=== PATIENT | male | born 1940 | race Caucasian/White ===

== ENCOUNTER 2016-06-02 08:41 | Outpatient (CLI) | payer MEDICARE, BC | END 2016-06-02 08:42 | disposition home or self-care (01) | DX: I48.2 Chronic atrial fibrillation (principal) ==

== ENCOUNTER 2016-08-11 11:19 | Outpatient (CLI) | payer MEDICARE, BC | END 2016-08-11 23:59 | disposition home or self-care (01) | DX: I48.2 Chronic atrial fibrillation (principal) ==

== ENCOUNTER 2016-08-14 10:03 | Outpatient (CLI) | payer MEDICARE, BC | END 2016-08-14 10:04 | disposition home or self-care (01) | DX: I48.91 Unspecified atrial fibrillation (principal) ==

== ENCOUNTER 2016-08-18 09:53 | Outpatient (CLI) | payer MEDICARE, BC | END 2016-08-18 09:54 | disposition home or self-care (01) | DX: M50.30 Other cervical disc degeneration, unspecified cervical region (principal); M47.892 Other spondylosis, cervical region ==

== ENCOUNTER 2016-10-12 09:23 | Outpatient (CLI) | payer MEDICARE, OTHER | END 2016-10-12 09:24 | disposition home or self-care (01) | LOC: LAB.F 09:23 | PROVIDERS: ATTEND Nurse Practitioner Family | DX: I48.91 Unspecified atrial fibrillation (principal) | CPT/HCPCS: 85610 ==

== ENCOUNTER 2016-11-16 08:36 | Outpatient (CLI) | payer MEDICARE, OTHER | END 2016-11-16 08:37 | LOC: LAB.F 08:36 | PROVIDERS: ATTEND Internal Medicine | DX: I48.2 Chronic atrial fibrillation (principal) | CPT/HCPCS: 85610 ==

== ENCOUNTER 2016-11-24 09:35 | Outpatient (CLI) | payer MEDICARE, OTHER | END 2016-11-24 09:36 | disposition home or self-care (01) | LOC: LAB.F 09:35 | PROVIDERS: ATTEND Internal Medicine | DX: I48.2 Chronic atrial fibrillation (principal) | CPT/HCPCS: 85610 ==

== ENCOUNTER 2017-03-04 07:56 | Outpatient (CLI) | payer MEDICARE, OTHER | END 2017-03-04 07:57 | disposition home or self-care (01) | LOC: LAB.F 07:56 | PROVIDERS: ATTEND Internal Medicine | DX: I48.2 Chronic atrial fibrillation (principal) | CPT/HCPCS: 85610 ==

== ENCOUNTER 2017-05-07 07:47 | Outpatient (CLI) | payer MEDICARE, OTHER ==
[2017-05-07 11:58] LABS: BASOPHILS # (AUTO) 0.1 10^3/uL (0.0-0.1); BASOPHILS % (AUTO) 1.2 %; EOSINOPHILS # (AUTO) 0.1 10^3/uL (0.0-0.7); EOSINOPHILS % (AUTO) 1.9 %; HGB - HEMOGLOBIN 13.6 g/dL (14.0-18.0); LYMPHOCYTES # (AUTO) 1.6 10^3/uL (1.5-3.5); LYMPHOCYTES % (AUTO) 21.8 %; MEAN CORPUSCULAR HEMOGLOBIN 33.6 pg (27.0-31.0); MEAN CORPUSCULAR VOLUME 101.8 fL (80.0-94.0); MEAN PLATELET VOLUME 10.4 fL (7.4-11.4); MONOCYTES # (AUTO) 0.6 10^3/uL (0.0-1.0); MONOCYTES % (AUTO) 8.5 %; NEUTROPHILS # (AUTO) 4.8 10^3/uL (1.5-6.6); NEUTROPHILS % (AUTO) 66.6 %; PLT - PLATELET COUNT 161 10^3/uL (130-450); RED BLOOD COUNT 4.06 10^6/uL (4.70-6.10); RED CELL DISTRIBUTION WIDTH 15.3 % (12.0-15.0); WHITE BLOOD COUNT 7.3 x10^3/uL (4.8-10.8)
[2017-05-07 12:13] LABS: ALBUMIN 3.9 g/dL (3.2-5.5); ALBUMIN/GLOBULIN RATIO 1.4 (1.0-2.2); BILIRUBIN,TOTAL 0.7 mg/dL (0.2-1.0); CALCIUM 8.4 mg/dL (8.5-10.3); CREATININE 0.9 mg/dL (0.6-1.2); TOTAL PROTEIN 6.6 g/dL (6.7-8.2)
== END 2017-05-07 07:48 | disposition home or self-care (01) ==
LOC: LAB.F 07:47
PROVIDERS: ATTEND Urology
DX: I48.2 Chronic atrial fibrillation (principal); Z12.5 Encounter for screening for malignant neoplasm of prostate; R85.89 Other abnormal findings in specimens from digestive organs and abdominal cavity
CPT/HCPCS: 36415; 80053; 85025; 85610; G0103; 84153

== ENCOUNTER 2017-06-11 07:43 | Outpatient (CLI) | payer MEDICARE, OTHER | END 2017-06-11 07:44 | disposition home or self-care (01) | LOC: LAB.F 07:43 | PROVIDERS: ATTEND Internal Medicine | DX: I48.2 Chronic atrial fibrillation (principal) | CPT/HCPCS: 85610 ==

== ENCOUNTER 2017-07-05 08:00 | Outpatient (CLI) | payer MEDICARE, OTHER | END 2017-07-05 08:01 | disposition home or self-care (01) | LOC: LAB.F 08:00 | PROVIDERS: ATTEND Internal Medicine | DX: I48.2 Chronic atrial fibrillation (principal) | CPT/HCPCS: 85610 ==

== ENCOUNTER 2017-07-16 08:27 | Outpatient (CLI) | payer MEDICARE, OTHER | END 2017-07-16 08:28 | disposition home or self-care (01) | LOC: LAB.F 08:27 | PROVIDERS: ATTEND Internal Medicine | DX: I48.2 Chronic atrial fibrillation (principal) | CPT/HCPCS: 85610 ==

== ENCOUNTER 2017-07-19 11:17 | Day surgery (SDC) | payer MEDICARE, OTHER ==
[2017-07-19] MEDS ORDERED: LACTATED RINGERS 1,000 ML IV ONE (12:22)
[2017-07-19 13:04] LABS: INR 1.2 (0.8-1.2); PT - PROTHROMBIN TIME 13.6 secs (9.9-12.6)
[2017-07-19] MEDS ORDERED: fentaNYL 250 MCG/5 ML VIAL IVP ONE (13:37)
[2017-07-19] MEDS ORDERED: MIDAZOLAM 2 MG/2 ML VIAL IVP ONE (13:37)
--- NOTE | 2017-07-19 13:40 | SURGERY HX AND PHYSICAL(T) ---
Surgical History & Physical - PMH/PSH/Social Hx Does the pt have a hx of MRSA?: No Eyes, Ears, Nose, Throat: None Cardiovascular: Hypertension, Atrial fibrillation Respiratory: Sleep apnea Skin: None Endocrine/Autoimmune: None Gastrointestinal: None Urinary: Other Musculoskeletal: None Psychiatric: None General: Cholecystectomy Orthopedic: Other - Home Meds and Allergies Home Medications: Metoprolol Succinate 25 mg PO DAILY 07/19/17 Warfarin [Coumadin] 5 mg PO DAILY 07/19/17 amLODIPine [Norvasc] 2.5 mg PO DAILY 07/19/17 Allergies/Adverse Reactions: Allergies Allergy/AdvReac Type Severity Reaction Status Date / Time No Known Drug Allergies Allergy Verified 07/19/17 12:28 - Vital Signs Temperature: 36.6 C Respiratory Rate: 16 O2 Saturation: 96 Weight (kg): 74.2 kg Height: 1.73 m - Patient Review Patient Review: Problems were reviewed with the patient during this visit. Medications were reviewed with the patient during this visit. Allergies were reviewed this patient during this visit. Pertinent Tests Reviewed: All pertitent test for this patient were reviewed. - Assessment & Plan Assessment and Plan: This very pleasant 76-year-old male who initially came to my office the end of May for the very same reason. For reasons that are unclear to me today his procedure was scheduled more than 30 days from the time of the summer in the office hence this update history and physical was mandated. In my discussions with the patient there have been no changes in his history and physical. Specifically he has started a new blood pressure medication with good results. He has not stopped any other medications. There are no new allergies. He has not been hospitalized. There are no new diagnoses. Teri Dawkins PA-C initially sent this very pleasant 76 year-old male to my office in consultation for the aforementioned reasons. He describes his bowel movements as regular and normal. He denies nausea, vomiting, constipation , diarrhea, melena, hematochezia, hematemesis, abdominal pain, unexplained weight loss, or change in the color, character or caliber of his stool. The patient had a Cologuard study hoping to avoid a colonoscopy and unfortunately this came back positive. Current Allergies: None. Current Medications: SUPREP BOWEL PREP KIT 17.5-3.13-1.6 GM/180ML ORAL SOLUTION (NA SULFATE-K SULFATE-MG SULF) Take one (6oz) bottle by mouth the PM before colonoscopy & one (6oz) bottle by mouth the AM of colonoscopy as directed by surgical clinic METOPROLOL SUCCINATE ER 25 MG ORAL TABLET EXTENDED RELEASE 24 HOUR (METOPROLOL SUCCINATE) Take one tablet by mouth daily * COUMADIN 5 MG ORAL TABLET (WARFARIN SODIUM) Take 5 mg for 5 days and 2.5mg for 2 days by moutrh or as otherwise directed by provider (instructed to and stopped) See nursing list for new antihypertensive medication Past Medical History: urinary retention - self cath's chronic anticoagulation atrial fibrillation Acid Reflux Hiatal Hernia Past Surgical History: knee surgery three hernia surgeries lap cris appendectomy Family History Summary: Father (ernestina.) - Has a Hx of Other Cancer - Bladder cancer - Entered On: 2014 Father (ernestina.) - Has a father - Bladder cancer - Entered On: 09/13/2014 Mother (ernestina.) - Has a mother - Entered On: 09/13/2014 Risk Factors: Smoked Tobacco Use: Former smoker Cigarettes: Yes Drug use: no Alcohol use: yes Type: Wine Drinks per day: 1 Exercise: yes Times per week: 3 Review of Systems CONSTITUTIONAL: No weight loss, fever, chills, weakness or fatigue. HEENT: Eyes: No visual loss, blurred vision, double vision or yellow sclerae. Ears, Nose, Throat: No hearing loss, sneezing, congestion, runny nose or sore throat. SKIN: No rash or itching. CARDIOVASCULAR: No chest pain, chest pressure or chest discomfort. No palpitations or edema. RESPIRATORY: No shortness of breath, cough or sputum. GASTROINTESTINAL: No anorexia, nausea, vomiting or diarrhea. No abdominal pain or blood. GENITOURINARY: No dysuria. No impotence. NEUROLOGICAL: No headache, dizziness, syncope, paralysis, ataxia, numbness or tingling in the extremities. No change in bowel or bladder control. MUSCULOSKELETAL: No muscle, back pain, joint pain or stiffness. HEMATOLOGIC: No anemia, bleeding or bruising. LYMPHATICS: No enlarged nodes. No history of splenectomy. PSYCHIATRIC: No history of depression or anxiety. ENDOCRINOLOGIC: No reports of sweating, cold or heat intolerance. No polyuria or polydipsia. ALLERGIES: No history of asthma, hives, eczema or rhinitis. Physical Exam General: 76-year old male, appears stated age, well developed, well nourished, evaluated in Bed 4, [facility] [employer]. HEENT: Normocephalic, atraumatic, extraocular movement intact, mucous membranes pink and moist, sclera anicteric and not injected, valentine hair Neck: Supple without pain on palpation, mass or bruit Cardiac: Regular rate and rhythm without rub, gallop, or murmur Chest: Clear to auscultation bilaterally Abdomen: Soft, nontender, normoactive bowel sounds, no hepatomegaly, no splenomegaly Genitourinary: Deferred Rectal: Deferred until colonoscopy Extremities: No gross neurovascular problem, no clubbing, cyanosis or edema Gait: No gross motor deficit Psychiatric: Alert and oriented to person place and time, asks and answers questions appropriately, mood and affect appropriate Impression & Recommendations: Colonoscopy with possible biopsies and/or polypectomies. Indications, procedure , alternatives (such as barium enema, Cologuard and even no procedure at all) and risks including but not limited to perforation requiring operative repair, bleeding with its risks, and were fully explained to him. I darshana diagrams explaining the colonic anatomy and the proposed procedure and handed it to him. Conscious sedation was discussed at length with him as were its risks including but not limited to loss of airway, aspiration, respiratory depression, and not enough relief of pain and anxiety and he indicated that he wished to have conscious sedation for his procedure. I explained that MAC anesthesia is associated with a higher incidence of colon perforation. Review of his history does not reveal any significant systemic disease that would contraindicate use of conscious sedation or MAC anesthesia. All questions were fully answered. Verbal and written consent was obtained. The patient in preparation for his colonoscopy will be n.p.o. and his colon will be mechanically prepped. Additionally, we should get in contact with his campus safety officer to determine what they would like us to do with his Coumadin. In short, does he need to be bridged or can the Coumadin be stopped for 5 days prior to the procedure than restarted the day of the procedure. 20 minutes of [id number] time spent with the patient the majority of which was spent in discussion
[2017-07-19 14:27] VITALS: BP 115/79
== END 2017-07-19 11:18 | disposition home or self-care (01) ==
LOC: SDS 11:17
PROVIDERS: ATTEND Surgery
PROC: 0DBM8ZX Excision of Descending Colon, Via Natural or Artificial Opening Endoscopic, Diagnostic (ICD-10-PCS; principal; 2017-07-19 12:30)
DX: R19.5 Other fecal abnormalities (principal); K57.30 Diverticulosis of large intestine without perforation or abscess without bleeding; K64.8 Other hemorrhoids; K51.40 Inflammatory polyps of colon without complications; I10 Essential (primary) hypertension; I48.91 Unspecified atrial fibrillation; Z79.01 Long term (current) use of anticoagulants
CPT/HCPCS: 36415; 45385; 85610; J3010; J7120

== ENCOUNTER 2017-09-07 08:53 | Outpatient (CLI) | payer MEDICARE, OTHER | END 2017-09-07 08:54 | disposition home or self-care (01) | LOC: LAB.F 08:53 | PROVIDERS: ATTEND Internal Medicine | DX: I48.2 Chronic atrial fibrillation (principal) | CPT/HCPCS: 85610 ==

== ENCOUNTER 2017-09-24 08:20 | Outpatient (CLI) | payer MEDICARE, OTHER ==
[2017-09-24] MEDS ORDERED: IOPAMIDOL-300 50 ML VIAL PO ONE (08:34)
[2017-09-24] MEDS ORDERED: IOPAMIDOL-300 50 ML VIAL ONE (08:35)
--- NOTE | 2017-09-25 08:49 | CT Report ---
EXAM: CT BONY PELVIS WITHOUT CONTRAST EXAM DATE: 09/24/2017 09:32 AM. CLINICAL HISTORY: RECURRENT HERNIA. COMPARISON: None. TECHNIQUE: Thin-section axial images were acquired of the pelvis without IV contrast. Oral Contrast g iven. Post-processing: Coronal and sagittal reformats. Other: None. In accordance with CT protocol optimization, one or more of the following dose reduction techniques w ere utilized for this exam: automated exposure control, adjustment of mA and/or KV based on patient s ize, or use of iterative reconstructive technique. FINDINGS: Bones: Lower lumbar degenerative disk disease. No significant pelvic ring lesion. Mild degenerative a rthritis of the left hip. Mild SI joint degenerative arthritis. Minimal osteoarthritis of the left hip. Musculature: No significant abnormality. Pelvic Cavity: No abnormal bowel dilatation. 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 This does not contain air. No j carlos rounding fatty infiltration noted. Other: There is a moderate size left inguinal hernia which has a lateral fatty component and medially contai ns a small portion of the urinary bladder. The appearance is somewhat complex and there may be an ind irect fatty component and direct component containing the portion of the urinary bladder. No other hernia identified. IMPRESSION: Positive for moderate sized complex-appearing left inguinal hernia. See above description. Left hemipelvis large but simple appearing fluid collection is noted. 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 Mild chronic bony changes. [facility] Referring Provider Line: [phone] SITE ID: [id number]
== END 2017-09-24 08:21 | disposition home or self-care (01) ==
LOC: DI 08:20
PROVIDERS: ATTEND Surgery
DX: K40.91 Unilateral inguinal hernia, without obstruction or gangrene, recurrent (principal); M51.36 Other intervertebral disc degeneration, lumbar region; M16.12 Unilateral primary osteoarthritis, left hip; M47.898 Other spondylosis, sacral and sacrococcygeal region
CPT/HCPCS: 72192; Q9967

== ENCOUNTER 2017-11-18 09:00 | Outpatient (CLI) | payer MEDICARE, OTHER | END 2017-11-18 09:01 | disposition home or self-care (01) | LOC: LAB.F 09:00 | PROVIDERS: ATTEND Internal Medicine | DX: I48.2 Chronic atrial fibrillation (principal) | CPT/HCPCS: 85610 ==

== ENCOUNTER 2017-12-24 10:44 | Outpatient (CLI) | payer MEDICARE, OTHER | END 2017-12-24 10:45 | disposition home or self-care (01) | LOC: LAB.F 10:44 | PROVIDERS: ATTEND Internal Medicine | DX: I48.2 Chronic atrial fibrillation (principal) | CPT/HCPCS: 85610 ==

== ENCOUNTER 2018-01-28 10:03 | Outpatient (CLI) | payer MEDICARE, OTHER | END 2018-01-28 10:04 | disposition home or self-care (01) | LOC: LAB.F 10:03 | PROVIDERS: ATTEND Internal Medicine | DX: I48.2 Chronic atrial fibrillation (principal) | CPT/HCPCS: 85610 ==

== ENCOUNTER 2018-02-04 07:49 | Outpatient (CLI) | payer MEDICARE, OTHER ==
[2018-02-04 10:41] LABS: PT - PROTHROMBIN TIME 50.6 secs (9.9-12.6)
[2018-02-04 10:51] LABS: INR 4.6 (0.8-1.2)
== END 2018-02-04 07:50 | disposition home or self-care (01) ==
LOC: LAB.F 07:49
PROVIDERS: ATTEND Internal Medicine
DX: I48.2 Chronic atrial fibrillation (principal)
CPT/HCPCS: 36415; 85610

== ENCOUNTER 2018-02-11 07:26 | Outpatient (CLI) | payer MEDICARE, OTHER | END 2018-02-11 07:27 | disposition home or self-care (01) | LOC: LAB.F 07:26 | PROVIDERS: ATTEND Internal Medicine | DX: I48.2 Chronic atrial fibrillation (principal) | CPT/HCPCS: 85610 ==

== ENCOUNTER 2018-02-18 07:27 | Outpatient (CLI) | payer MEDICARE, OTHER | END 2018-02-18 07:28 | disposition home or self-care (01) | LOC: LAB.F 07:27 | PROVIDERS: ATTEND Internal Medicine | DX: I48.2 Chronic atrial fibrillation (principal) | CPT/HCPCS: 85610 ==

== ENCOUNTER 2018-04-07 07:35 | Outpatient (CLI) | payer MEDICARE, OTHER | END 2018-04-07 07:36 | disposition home or self-care (01) | LOC: LAB.F 07:35 | PROVIDERS: ATTEND Internal Medicine | DX: I48.2 Chronic atrial fibrillation (principal) | CPT/HCPCS: 85610 ==

== ENCOUNTER 2018-05-04 07:37 | Outpatient (CLI) | payer MEDICARE, OTHER | END 2018-05-04 07:38 | disposition home or self-care (01) | LOC: LAB.F 07:37 | PROVIDERS: ATTEND Internal Medicine | DX: I48.2 Chronic atrial fibrillation (principal) | CPT/HCPCS: 85610 ==

== ENCOUNTER 2018-06-17 07:37 | Outpatient (CLI) | payer MEDICARE, OTHER | END 2018-06-17 07:38 | disposition home or self-care (01) | LOC: LAB.F 07:37 | PROVIDERS: ATTEND Internal Medicine | DX: I48.2 Chronic atrial fibrillation (principal) | CPT/HCPCS: 85610 ==

== ENCOUNTER 2018-07-29 07:15 | Outpatient (CLI) | payer MEDICARE, OTHER | END 2018-07-29 07:16 | disposition home or self-care (01) | LOC: LAB.F 07:15 | PROVIDERS: ATTEND Internal Medicine | DX: I48.2 Chronic atrial fibrillation (principal) | CPT/HCPCS: 85610 ==

== ENCOUNTER 2018-09-07 07:36 | Outpatient (CLI) | payer MEDICARE, OTHER | END 2018-09-07 07:37 | disposition home or self-care (01) | LOC: LAB.F 07:36 | PROVIDERS: ATTEND Internal Medicine | DX: I48.2 Chronic atrial fibrillation (principal) | CPT/HCPCS: 85610 ==

== ENCOUNTER 2018-09-23 08:59 | Outpatient (CLI) | payer MEDICARE, OTHER | END 2018-09-23 09:00 | disposition home or self-care (01) | LOC: LAB.F 08:59 | PROVIDERS: ATTEND Internal Medicine | DX: I48.2 Chronic atrial fibrillation (principal) | CPT/HCPCS: 85610 ==

== ENCOUNTER 2018-10-27 07:54 | Outpatient (CLI) | payer MEDICARE, OTHER | END 2018-10-27 07:55 | disposition home or self-care (01) | LOC: LAB.S 07:54 | PROVIDERS: ATTEND Internal Medicine | DX: I48.2 Chronic atrial fibrillation (principal) | CPT/HCPCS: 85610 ==

== ENCOUNTER 2018-12-08 07:29 | Outpatient (CLI) | payer MEDICARE, OTHER | END 2018-12-08 07:30 | disposition home or self-care (01) | LOC: LAB.S 07:29 | PROVIDERS: ATTEND Family Medicine | DX: I48.2 Chronic atrial fibrillation (principal) | CPT/HCPCS: 85610 ==

== ENCOUNTER 2019-01-16 07:08 | Outpatient (CLI) | payer MEDICARE, OTHER | END 2019-01-16 07:09 | disposition home or self-care (01) | LOC: LAB.S 07:08 | PROVIDERS: ATTEND Family Medicine | DX: I48.2 Chronic atrial fibrillation (principal) | CPT/HCPCS: 85610 ==

== ENCOUNTER 2019-02-21 07:43 | Outpatient (CLI) | payer MEDICARE, OTHER | END 2019-02-21 07:44 | disposition home or self-care (01) | LOC: LAB.S 07:43 | PROVIDERS: ATTEND Family Medicine | DX: I48.20 Chronic atrial fibrillation, unspecified (principal) | CPT/HCPCS: 85610 ==

== ENCOUNTER 2019-05-22 07:04 | Outpatient (CLI) | payer MEDICARE, OTHER | END 2019-05-22 07:05 | disposition home or self-care (01) | LOC: LAB.S 07:04 | PROVIDERS: ATTEND Family Medicine | DX: I48.20 Chronic atrial fibrillation, unspecified (principal) | CPT/HCPCS: 85610 ==

== ENCOUNTER 2020-01-30 07:09 | Outpatient (CLI) | payer MEDICARE, OTHER | END 2020-01-30 07:10 | disposition home or self-care (01) | LOC: LAB.S 07:09 | PROVIDERS: ATTEND Internal Medicine | DX: I48.20 Chronic atrial fibrillation, unspecified (principal) | CPT/HCPCS: 85610 ==

== ENCOUNTER 2020-04-26 07:44 | Outpatient (CLI) | payer MEDICARE, OTHER ==
[2020-04-26 14:57] LABS: BASOPHILS % (AUTO) 0.6 %; EOSINOPHILS # (AUTO) 0.2 10^3/uL (0.0-0.7); EOSINOPHILS % (AUTO) 2.2 %; HGB - HEMOGLOBIN 13.1 g/dL (14.0-18.0); LYMPHOCYTES # (AUTO) 1.6 10^3/uL (1.5-3.5); LYMPHOCYTES % (AUTO) 22.7 %; MEAN CORPUSCULAR HEMOGLOBIN 34.2 pg (27.0-31.0); MEAN CORPUSCULAR HGB CONC 32.8 g/dL (32.0-36.0); MEAN CORPUSCULAR VOLUME 104.4 fL (80.0-94.0); MEAN PLATELET VOLUME 11.8 fL (7.4-11.4); MONOCYTES # (AUTO) 0.7 10^3/uL (0.0-1.0); MONOCYTES % (AUTO) 9.6 %; NEUTROPHILS # (AUTO) 4.6 10^3/uL (1.5-6.6); NEUTROPHILS % (AUTO) 64.5 %; PLT - PLATELET COUNT 201 10^3/uL (130-450); RED BLOOD COUNT 3.83 10^6/uL (4.70-6.10); RED CELL DISTRIBUTION WIDTH 14.7 % (12.0-15.0); WHITE BLOOD COUNT 7.2 x10^3/uL (4.8-10.8)
[2020-04-26 15:49] LABS: ALBUMIN 3.9 g/dL (3.2-5.5); ALBUMIN/GLOBULIN RATIO 1.6 (1.0-2.2); ALKALINE PHOSPHATASE 63 IU/L (42-121); ALT ALANINE AMINOTRANSFERASE 19 IU/L (10-60); AST ASPARTATE AMINOTRANSFERASE 30 IU/L (10-42); BILIRUBIN,TOTAL 1.2 mg/dL (0.2-1.0); BUN - BLOOD UREA NITROGEN 18 mg/dL (6-20); CALCIUM 8.7 mg/dL (8.5-10.3); CARBON DIOXIDE - CO2 24 mmol/L (21-32); CHLORIDE 106 mmol/L (101-111); CHOLESTEROL 206 mg/dL; CREATININE 0.8 mg/dL (0.6-1.2); GLUCOSE 97 mg/dL (70-100); HDL CHOLESTEROL 68 mg/dL; LDL CHOLESTEROL,CALCULATED 127 mg/dL; LDL/HDL RATIO 1.9 (<3.6); SODIUM 139 mmol/L (135-145); TOTAL PROTEIN 6.4 g/dL (6.7-8.2); VLDL CHOLESTEROL 11 mg/dL
[2020-04-26 18:55] LABS: HEMOGLOBIN A1c% 5.3 % (4.27-6.07)
--- OUTSIDE RECORDS SUMMARY | 2020-05-01 01:27 | EXTERNAL MEDICAL SUMMARY RPT | Continuity of Care Document ---
:1940 Demographics Phone Unavailable Preferred Language Unknown Marital Status Unknown Judaism Affiliation Unknown Race Unknown Ethnic Group Unknown Author Organization [place] Address [address] [phone] Phone Care Team Providers Name Role Phone [facility] Unavailable Unavailable Problems date description facility 2020-04-26 07:44 CHRONIC ATRIAL FIBRILLATION, [facility] UNSPECIFIED 2020-04-26 07:44 OTHER SPECIFIED ABNORMAL FINDINGS [facility] OF BLOOD CHEMISTRY 2020-04-26 07:44 [facility] EXAM W/O ABNORMAL FINDINGS Allergies date description facility NO KNOWN ENVIRONMENTAL ALLERGIES [facility] Results Social History date description facility [id number]
== END 2020-04-26 07:45 | disposition home or self-care (01) ==
LOC: LAB.S 07:44
PROVIDERS: ATTEND Internal Medicine
DX: Z00.00 Encounter for general adult medical examination without abnormal findings (principal); I48.20 Chronic atrial fibrillation, unspecified; R79.89 Other specified abnormal findings of blood chemistry
CPT/HCPCS: 36415; 80053; 80061; 82306; 83036; 83721; 84443; 85025; 85610

== ENCOUNTER 2020-06-07 07:49 | Outpatient (CLI) | payer MEDICARE, OTHER | END 2020-06-07 07:50 | disposition home or self-care (01) | LOC: LAB.S 07:49 | PROVIDERS: ATTEND Urology | DX: Z53.9 Procedure and treatment not carried out, unspecified reason (principal) ==

== ENCOUNTER 2020-06-14 07:09 | Outpatient (CLI) | payer MEDICARE, OTHER | END 2020-06-14 07:10 | disposition home or self-care (01) | LOC: LAB.S 07:09 | PROVIDERS: ATTEND Internal Medicine | DX: I48.20 Chronic atrial fibrillation, unspecified (principal); E55.9 Vitamin D deficiency, unspecified; R39.9 Unspecified symptoms and signs involving the genitourinary system | CPT/HCPCS: 36415; 82306; 84153; 85610 ==

== ENCOUNTER 2020-08-01 08:14 | Outpatient (CLI) | payer MEDICARE, OTHER | END 2020-08-01 08:15 | disposition home or self-care (01) | LOC: LAB.S 08:14 | PROVIDERS: ATTEND Internal Medicine | DX: Z12.5 Encounter for screening for malignant neoplasm of prostate (principal); I48.20 Chronic atrial fibrillation, unspecified | CPT/HCPCS: 36415; 85610; G0103; 84153 ==

== ENCOUNTER 2020-10-03 07:23 | Outpatient (CLI) | payer MEDICARE, OTHER | END 2020-10-03 07:24 | disposition home or self-care (01) | LOC: LAB.S 07:23 | PROVIDERS: ATTEND Internal Medicine | DX: I48.20 Chronic atrial fibrillation, unspecified (principal) | CPT/HCPCS: 36416; 85610 ==

== ENCOUNTER 2020-11-11 07:02 | Outpatient (CLI) | payer MEDICARE, OTHER | END 2020-11-11 07:03 | disposition home or self-care (01) | LOC: LAB.S 07:02 | PROVIDERS: ATTEND Internal Medicine | DX: I48.20 Chronic atrial fibrillation, unspecified (principal) | CPT/HCPCS: 36416; 85610 ==

== ENCOUNTER 2020-11-18 16:34 | Outpatient (CLI) | payer MEDICARE, OTHER | END 2020-11-18 16:35 | disposition home or self-care (01) | LOC: COV 16:34 | PROVIDERS: ATTEND Internal Medicine Gastroenterology | DX: Z01.812 Encounter for preprocedural laboratory examination (principal); R13.10 Dysphagia, unspecified; Z20.822 Contact with and (suspected) exposure to COVID-19 ==

== ENCOUNTER 2020-11-27 07:02 | Outpatient (CLI) | payer MEDICARE, OTHER | END 2020-11-27 07:03 | disposition home or self-care (01) | LOC: LAB.S 07:02 | PROVIDERS: ATTEND Internal Medicine | DX: I48.20 Chronic atrial fibrillation, unspecified (principal) | CPT/HCPCS: 36416; 85610 ==

== ENCOUNTER 2021-01-10 07:01 | Outpatient (CLI) | payer MEDICARE, OTHER | END 2021-01-10 07:02 | disposition home or self-care (01) | LOC: LAB.S 07:01 | PROVIDERS: ATTEND Internal Medicine | DX: I48.20 Chronic atrial fibrillation, unspecified (principal) | CPT/HCPCS: 36416; 85610 ==

== ENCOUNTER 2021-03-24 07:06 | Outpatient (CLI) | payer MEDICARE, OTHER | END 2021-03-24 07:07 | disposition home or self-care (01) | LOC: LAB.S 07:06 | PROVIDERS: ATTEND Internal Medicine | DX: I48.20 Chronic atrial fibrillation, unspecified (principal) | CPT/HCPCS: 36416; 85610 ==

== ENCOUNTER 2021-04-23 11:02 | Outpatient (CLI) | payer MEDICARE, OTHER | END 2021-04-23 11:03 | disposition home or self-care (01) | LOC: LAB.S 11:02 | PROVIDERS: ATTEND Internal Medicine | DX: I48.20 Chronic atrial fibrillation, unspecified (principal) | CPT/HCPCS: 36416; 85610 ==

== ENCOUNTER 2021-07-21 07:11 | Outpatient (CLI) | payer MEDICARE, OTHER | END 2021-07-21 07:12 | disposition home or self-care (01) | LOC: LAB.S 07:11 | PROVIDERS: ATTEND Internal Medicine | DX: I48.20 Chronic atrial fibrillation, unspecified (principal) | CPT/HCPCS: 36416; 85610 ==

== ENCOUNTER 2021-10-16 07:02 | Outpatient (CLI) | payer MEDICARE, OTHER | END 2021-10-16 07:03 | disposition home or self-care (01) | LOC: LAB.S 07:02 | PROVIDERS: ATTEND Internal Medicine | DX: I48.20 Chronic atrial fibrillation, unspecified (principal) | CPT/HCPCS: 36416; 85610 ==

== ENCOUNTER 2022-03-18 08:00 | Outpatient (CLI) | payer MEDICARE, OTHER | END 2022-03-18 23:59 | disposition home or self-care (01) | LOC: LAB 08:00 | PROVIDERS: ATTEND Registered Nurse | DX: J02.9 Acute pharyngitis, unspecified (principal); R05.1 Acute cough; J34.89 Other specified disorders of nose and nasal sinuses | CPT/HCPCS: 87070 ==

== ENCOUNTER 2022-04-20 09:27 | Outpatient (CLI) | payer MEDICARE, OTHER | END 2022-04-20 09:28 | disposition home or self-care (01) | LOC: LAB.S 09:27 | PROVIDERS: ATTEND Internal Medicine | DX: I48.20 Chronic atrial fibrillation, unspecified (principal) | CPT/HCPCS: 36416; 85610 ==

== ENCOUNTER 2022-05-01 11:36 | Outpatient (CLI) | payer MEDICARE, OTHER ==
[2022-05-01 15:36] LABS: BASOPHILS % (AUTO) 0.4 %; EOSINOPHILS # (AUTO) 0.1 10^3/uL (0.0-0.7); EOSINOPHILS % (AUTO) 1.6 %; HCT - HEMATOCRIT 37.1 % (42.0-52.0); HGB - HEMOGLOBIN 11.9 g/dL (14.0-18.0); LYMPHOCYTES # (AUTO) 1.7 10^3/uL (1.5-3.5); LYMPHOCYTES % (AUTO) 21.1 %; MEAN CORPUSCULAR HEMOGLOBIN 33.5 pg (27.0-31.0); MEAN CORPUSCULAR HGB CONC 32.1 g/dL (32.0-36.0); MEAN CORPUSCULAR VOLUME 104.5 fL (80.0-94.0); MEAN PLATELET VOLUME 11.8 fL (7.4-11.4); MONOCYTES # (AUTO) 0.8 10^3/uL (0.0-1.0); MONOCYTES % (AUTO) 9.6 %; NEUTROPHILS # (AUTO) 5.4 10^3/uL (1.5-6.6); NEUTROPHILS % (AUTO) 67.1 %; PLT - PLATELET COUNT 215 10^3/uL (130-450); RED BLOOD COUNT 3.55 10^6/uL (4.70-6.10); RED CELL DISTRIBUTION WIDTH 15.9 % (12.0-15.0); WHITE BLOOD COUNT 8.1 x10^3/uL (4.8-10.8)
[2022-05-01 15:49] LABS: INR 3.2 (0.8-1.2); PT - PROTHROMBIN TIME 32.7 secs (9.9-12.6)
== END 2022-05-01 11:37 | disposition home or self-care (01) ==
LOC: LAB.S 11:36
PROVIDERS: ATTEND Internal Medicine
DX: D51.9 Vitamin B12 deficiency anemia, unspecified (principal); Z51.81 Encounter for therapeutic drug level monitoring; I48.20 Chronic atrial fibrillation, unspecified
CPT/HCPCS: 36415; 82607; 85025; 85610

== ENCOUNTER 2022-06-05 07:04 | Outpatient (CLI) | payer MEDICARE, OTHER | END 2022-06-05 07:05 | disposition home or self-care (01) | LOC: LAB.S 07:04 | PROVIDERS: ATTEND Internal Medicine | DX: I48.20 Chronic atrial fibrillation, unspecified (principal) | CPT/HCPCS: 36416; 85610 ==

== ENCOUNTER 2022-08-07 08:20 | Outpatient (CLI) | payer MEDICARE, OTHER | END 2022-08-07 08:21 | disposition home or self-care (01) | LOC: LAB.S 08:20 | PROVIDERS: ATTEND Internal Medicine | DX: I48.20 Chronic atrial fibrillation, unspecified (principal) | CPT/HCPCS: 36416; 85610 ==

== ENCOUNTER 2022-09-15 07:01 | Outpatient (CLI) | payer MEDICARE, OTHER | END 2022-09-15 07:02 | disposition home or self-care (01) | LOC: LAB.S 07:01 | PROVIDERS: ATTEND Internal Medicine | DX: I48.20 Chronic atrial fibrillation, unspecified (principal) | CPT/HCPCS: 36416; 85610 ==

== ENCOUNTER 2022-10-15 07:01 | Outpatient (CLI) | payer MEDICARE, OTHER | END 2022-10-15 07:02 | disposition home or self-care (01) | LOC: LAB.S 07:01 | PROVIDERS: ATTEND Internal Medicine | DX: I48.20 Chronic atrial fibrillation, unspecified (principal) | CPT/HCPCS: 36416; 85610 ==

== ENCOUNTER 2022-11-12 07:04 | Outpatient (CLI) | payer MEDICARE, OTHER ==
[2022-11-12 14:37] LABS: BASOPHILS # (AUTO) 0.1 10^3/uL (0.0-0.1); BASOPHILS % (AUTO) 0.6 %; EOSINOPHILS # (AUTO) 0.2 10^3/uL (0.0-0.7); EOSINOPHILS % (AUTO) 2.6 %; HCT - HEMATOCRIT 37.6 % (42.0-52.0); HGB - HEMOGLOBIN 11.6 g/dL (14.0-18.0); LYMPHOCYTES # (AUTO) 1.8 10^3/uL (1.5-3.5); LYMPHOCYTES % (AUTO) 20.4 %; MEAN CORPUSCULAR HEMOGLOBIN 31.8 pg (27.0-31.0); MEAN CORPUSCULAR HGB CONC 30.9 g/dL (32.0-36.0); MONOCYTES % (AUTO) 11.1 %; NEUTROPHILS # (AUTO) 5.7 10^3/uL (1.5-6.6); NEUTROPHILS % (AUTO) 64.7 %; PLT - PLATELET COUNT 245 10^3/uL (130-450); RED BLOOD COUNT 3.65 10^6/uL (4.70-6.10); RED CELL DISTRIBUTION WIDTH 16.9 % (12.0-15.0); WHITE BLOOD COUNT 8.8 x10^3/uL (4.8-10.8)
[2022-11-12 15:23] LABS: ALBUMIN 3.9 g/dL (3.2-5.5); ALBUMIN/GLOBULIN RATIO 1.4 (1.0-2.2); BILIRUBIN,TOTAL 0.7 mg/dL (0.2-1.0); CALCIUM 8.9 mg/dL (8.5-10.3); CREATININE 0.9 mg/dL (0.6-1.3); POTASSIUM 3.9 mmol/L (3.5-4.5); TOTAL PROTEIN 6.6 g/dL (6.4-8.9)
== END 2022-11-12 07:05 | disposition home or self-care (01) ==
LOC: LAB.S 07:04
PROVIDERS: ATTEND Internal Medicine
DX: I10 Essential (primary) hypertension (principal); K22.9 Disease of esophagus, unspecified; D51.9 Vitamin B12 deficiency anemia, unspecified; R33.9 Retention of urine, unspecified; Z51.81 Encounter for therapeutic drug level monitoring; Z79.01 Long term (current) use of anticoagulants; Z79.899 Other long term (current) drug therapy; J32.9 Chronic sinusitis, unspecified; R05.1 Acute cough; J34.89 Other specified disorders of nose and nasal sinuses; J02.9 Acute pharyngitis, unspecified; K40.91 Unilateral inguinal hernia, without obstruction or gangrene, recurrent; R19.5 Other fecal abnormalities; N40.0 Benign prostatic hyperplasia without lower urinary tract symptoms; R49.0 Dysphonia; I48.20 Chronic atrial fibrillation, unspecified
CPT/HCPCS: 36415; 80053; 82607; 83921; 85025; 85610

== ENCOUNTER 2022-12-03 07:02 | Outpatient (CLI) | payer MEDICARE, OTHER ==
[2022-12-03 14:27] LABS: ABSOLUTE RETICS # AUTO 0.081 10^6/uL (0.020-0.110); BASOPHILS # (AUTO) 0.1 10^3/uL (0.0-0.1); BASOPHILS % (AUTO) 0.5 %; EOSINOPHILS # (AUTO) 0.1 10^3/uL (0.0-0.7); EOSINOPHILS % (AUTO) 0.7 %; HCT - HEMATOCRIT 37.2 % (42.0-52.0); HGB - HEMOGLOBIN 11.9 g/dL (14.0-18.0); LYMPHOCYTES # (AUTO) 1.6 10^3/uL (1.5-3.5); LYMPHOCYTES % (AUTO) 14.7 %; MONOCYTES # (AUTO) 1.1 10^3/uL (0.0-1.0); MONOCYTES % (AUTO) 10.1 %; NEUTROPHILS # (AUTO) 7.9 10^3/uL (1.5-6.6); NEUTROPHILS % (AUTO) 73.6 %; PLT - PLATELET COUNT 290 10^3/uL (130-450); RED BLOOD COUNT 3.72 10^6/uL (4.70-6.10); RED CELL DISTRIBUTION WIDTH 17.2 % (12.0-15.0); RETICULOCYTE COUNT % (AUTO) 2.17 % (0.5-2.3); WHITE BLOOD COUNT 10.7 x10^3/uL (4.8-10.8)
[2022-12-03 14:29] LABS: SLIDE REVIEW? Indicated
[2022-12-03 14:43] LABS: PLATELET ESTIMATE, MANUAL NORMAL (130-450,000) (NORMAL); PLATELET MORPHOLOGY NORMAL APPEARANCE (NORMAL)
== END 2022-12-03 07:03 | disposition home or self-care (01) ==
LOC: LAB.S 07:02
PROVIDERS: ATTEND Internal Medicine
DX: I48.20 Chronic atrial fibrillation, unspecified (principal); D51.9 Vitamin B12 deficiency anemia, unspecified
CPT/HCPCS: 36415; 36416; 82746; 85025; 85045; 85610

== ENCOUNTER 2023-02-19 07:01 | Outpatient (CLI) | payer MEDICARE, OTHER | END 2023-02-19 07:02 | disposition home or self-care (01) | LOC: LAB.S 07:01 | PROVIDERS: ATTEND Internal Medicine | DX: I48.20 Chronic atrial fibrillation, unspecified (principal) | CPT/HCPCS: 36416; 85610 ==

== ENCOUNTER 2023-06-08 07:08 | Outpatient (CLI) | payer MEDICARE, OTHER ==
[2023-06-08 14:32] LABS: BASOPHILS % (AUTO) 0.5 %; EOSINOPHILS # (AUTO) 0.2 10^3/uL (0.0-0.7); EOSINOPHILS % (AUTO) 2.1 %; HCT - HEMATOCRIT 32.2 % (42.0-52.0); HGB - HEMOGLOBIN 9.3 g/dL (14.0-18.0); LYMPHOCYTES # (AUTO) 1.3 10^3/uL (1.5-3.5); LYMPHOCYTES % (AUTO) 16.7 %; MEAN CORPUSCULAR HEMOGLOBIN 28.4 pg (27.0-31.0); MEAN CORPUSCULAR HGB CONC 28.9 g/dL (32.0-36.0); MEAN CORPUSCULAR VOLUME 98.5 fL (80.0-94.0); MEAN PLATELET VOLUME 11.3 fL (7.4-11.4); MONOCYTES # (AUTO) 0.9 10^3/uL (0.0-1.0); MONOCYTES % (AUTO) 11.4 %; NEUTROPHILS # (AUTO) 5.2 10^3/uL (1.5-6.6); NEUTROPHILS % (AUTO) 68.5 %; PLT - PLATELET COUNT 261 10^3/uL (130-450); RED BLOOD COUNT 3.27 10^6/uL (4.70-6.10); RED CELL DISTRIBUTION WIDTH 26.5 % (12.0-15.0); WHITE BLOOD COUNT 7.6 x10^3/uL (4.8-10.8)
[2023-06-08 14:40] LABS: RBC MORPHOLOGY (MULTIPLE) 4+ ANISOCYTOSIS (NORMAL); SLIDE REVIEW? Indicated
[2023-06-08 15:03] LABS: FERRITIN 269.4 ng/mL (23.9-336.2)
== END 2023-06-08 07:09 | disposition home or self-care (01) ==
LOC: LAB.S 07:08
PROVIDERS: ATTEND Internal Medicine
DX: I48.20 Chronic atrial fibrillation, unspecified (principal); Z86.2 Personal history of diseases of the blood and blood-forming organs and certain disorders involving the immune mechanism
CPT/HCPCS: 36415; 82728; 83540; 84466; 85025; 85610

== ENCOUNTER 2023-07-12 07:09 | Outpatient (CLI) | payer MEDICARE, OTHER | END 2023-07-12 07:10 | disposition home or self-care (01) | LOC: LAB.S 07:09 | PROVIDERS: ATTEND Internal Medicine | DX: I48.20 Chronic atrial fibrillation, unspecified (principal) | CPT/HCPCS: 36416; 85610 ==

== ENCOUNTER 2023-07-23 07:04 | Outpatient (CLI) | payer MEDICARE, OTHER | END 2023-07-23 07:05 | disposition home or self-care (01) | LOC: LAB.S 07:04 | PROVIDERS: ATTEND Internal Medicine | DX: I48.20 Chronic atrial fibrillation, unspecified (principal) | CPT/HCPCS: 36416; 85610 ==

== ENCOUNTER 2023-07-26 07:01 | Outpatient (CLI) | payer MEDICARE, OTHER | END 2023-07-26 07:02 | disposition home or self-care (01) | LOC: LAB.S 07:01 | PROVIDERS: ATTEND Internal Medicine | DX: I48.20 Chronic atrial fibrillation, unspecified (principal) | CPT/HCPCS: 36416; 85610 ==

== ENCOUNTER 2023-09-07 07:04 | Outpatient (CLI) | payer MEDICARE, OTHER | END 2023-09-07 07:05 | disposition home or self-care (01) | LOC: LAB.S 07:04 | PROVIDERS: ATTEND Internal Medicine | DX: I48.20 Chronic atrial fibrillation, unspecified (principal) | CPT/HCPCS: 36416; 85610 ==

== ENCOUNTER 2023-10-13 08:00 | Outpatient (CLI) | payer MEDICARE, OTHER | END 2023-10-13 23:59 | disposition home or self-care (01) | LOC: LAB.S 08:00 | PROVIDERS: ATTEND Registered Nurse | DX: R05.9 Cough, unspecified (principal) ==

== ENCOUNTER 2023-12-27 07:10 | Outpatient (CLI) | payer MEDICARE, OTHER | END 2023-12-27 07:11 | disposition home or self-care (01) | LOC: LAB.S 07:10 | PROVIDERS: ATTEND Internal Medicine | DX: I48.20 Chronic atrial fibrillation, unspecified (principal) | CPT/HCPCS: 36416; 85610 ==